=== PATIENT | male | born 1950 | race Caucasian/White ===

== ENCOUNTER 2018-10-12 14:15 | Inpatient (IN) | payer MEDICARE, OTHER, BC ==
[2018-10-12 16:00] LABS: ADD MAN DIFF? NO
[2018-10-12 16:07] LABS: BASOPHIL # 0.1 10^3/ul (0.0-0.1); BASOPHILS % 0.7 % (0.0-2.0); EOSINOPHILS % 0.1 % (0.0-7.0); LYMPHOCYTES # 1.9 10^3/ul (0.8-2.9); LYMPHOCYTES % 20.7 % (15.0-51.0); MEAN CORPUSCULAR HEMOGLOBIN 30.7 pg (29.0-33.0); MEAN CORPUSCULAR HGB CONC 33.3 g/dl (32.0-37.0); MEAN CORPUSCULAR VOLUME 92.2 fl (82.0-101.0); MEAN PLATELET VOLUME 11.5 fl (7.4-10.4); MONOCYTE # 0.6 10^3/ul (0.3-0.9); NEUTROPHIL # 6.7 10^3/ul (1.6-7.5); NEUTROPHILS % 72.1 % (39.0-77.0); PLATELET COUNT 202 10^3/UL (140-415); RED BLOOD COUNT 4.88 10^6/ul (4.70-6.10); RED CELL DISTRIBUTION WIDTH 12.6 % (11.5-14.5)
[2018-10-12 16:07] LABS: WHITE BLOOD COUNT 9.2 10^3/ul (4.8-10.8)
[2018-10-12 16:33] LABS: ANION GAP 14 (5-13); BLOOD UREA NITROGEN 26 mg/dl (7-20); CALCIUM 9.8 mg/dl (8.4-10.2); CARBON DIOXIDE 26 mmol/L (21-31); CHLORIDE 96 mmol/L (97-110); CREATININE 0.95 mg/dl (0.61-1.24); Estimated GFR > 60 mL/min (>60); GLUCOSE 308 mg/dl (70-220); POTASSIUM 4.5 mmol/L (3.5-5.1); SODIUM 136 mmol/L (135-144)
[2018-10-12] MEDS: ACYCLOVIR IVPB (18:23)
[2018-10-12] MEDS: SOD CHLORIDE 0.9% IVPB (18:23)
[2018-10-12] MEDS: LEVOFLOXACIN 750MG/D5W (PMX) 150 ML IVPB (19:29)
[2018-10-12] MEDS: VANCOMYCIN 1 GM (PMX) 250 ML IVPB (21:06)
[2018-10-12] MEDS ORDERED: ONDANSETRON 4 MG INJ IV (22:00)
[2018-10-12] MEDS ORDERED: VANCOMYCIN IV PER PHARMACY XX (22:00)
[2018-10-12] MEDS ORDERED: ACETAMINOPHEN 500 MG TAB PO (22:00)
[2018-10-12] MEDS: RANITIDINE 150 MG TAB PO (22:00)
[2018-10-12] MEDS ORDERED: GLUCAGON 1 MG INJ IM (22:30)
[2018-10-12] MEDS ORDERED: GLUCOSE GEL 15 GRAM TUBE PO ×2 (22:30)
[2018-10-12] MEDS ORDERED: DEXTROSE 50% 50 ML SYRINGE IV ×2 (22:30)
[2018-10-12] MEDS ORDERED: GLUCOSE GEL 15 GRAM TUBE BUCCAL (22:30)
[2018-10-12] MEDS: GABAPENTIN 100 MG CAP PO (22:51)
[2018-10-12] MEDS ORDERED: HYDROCODONE/APAP (5/325) TAB PO (23:00)
[2018-10-12] MEDS: VANCOMYCIN 500MG/NS (PMX) 100 ML IVPB (23:25)
[2018-10-12] MEDS ORDERED: SOD CHLORIDE 0.9% IVPB (23:30)
[2018-10-12] MEDS ORDERED: VANCOMYCIN 1.5 GM in SOD CHLORIDE 0.9% 250 ML IVPB (23:30)
[2018-10-12] MEDS ORDERED: ACYCLOVIR IVPB (23:30)
[2018-10-13] MEDS: ACCU-CHEK XX ×2 (02:00→20:42)
[2018-10-13] MEDS: PANTOPRAZOLE (EC) 40 MG TAB PO (05:52)
[2018-10-13] MEDS: LEVOFLOXACIN 500 MG TAB PO (05:52)
[2018-10-13] MEDS: ACYCLOVIR IVPB ×2 (06:35→15:17)
[2018-10-13] MEDS: SOD CHLORIDE 0.9% IVPB ×2 (06:35→15:17)
[2018-10-13 07:11] LABS: ADD MAN DIFF? NO
[2018-10-13 07:19] LABS: WHITE BLOOD COUNT 9.4 10^3/ul (4.8-10.8)
[2018-10-13 07:19] LABS: BASOPHILS % 0.3 % (0.0-2.0); EOSINOPHILS % 0.1 % (0.0-7.0); HEMATOCRIT 41.4 % (42.0-52.0); HEMOGLOBIN 13.7 g/dl (14.0-18.0); MEAN CORPUSCULAR HEMOGLOBIN 30.4 pg (29.0-33.0); MEAN CORPUSCULAR HGB CONC 33.1 g/dl (32.0-37.0); MEAN PLATELET VOLUME 11.4 fl (7.4-10.4); MONOCYTES % 10.2 % (0.0-11.0); NEUTROPHIL # 6.4 10^3/ul (1.6-7.5); NEUTROPHILS % 67.7 % (39.0-77.0); PLATELET COUNT 169 10^3/UL (140-415); RED CELL DISTRIBUTION WIDTH 12.4 % (11.5-14.5)
[2018-10-13 07:44] LABS: ALANINE AMINOTRANSFERASE 84 IU/L (13-69); ALBUMIN 4.4 g/dl (3.3-4.9); ALBUMIN/GLOBULIN RATIO 1.69; ALKALINE PHOSPHATASE 43 IU/L (42-121); ANION GAP 15 (5-13); ASPARTATE AMINO TRANSFERASE 51 IU/L (15-46); BILIRUBIN,INDIRECT 0.3 mg/dl (0-1.1); BILIRUBIN,TOTAL 0.3 mg/dl (0.2-1.3); BLOOD UREA NITROGEN 40 mg/dl (7-20); CALCIUM 9.3 mg/dl (8.4-10.2); CARBON DIOXIDE 26 mmol/L (21-31); CHLORIDE 96 mmol/L (97-110); CREATININE 2.02 mg/dl (0.61-1.24); Estimated GFR 33 mL/min (>60); GLUCOSE 195 mg/dl (70-220); POTASSIUM 4.3 mmol/L (3.5-5.1); SODIUM 137 mmol/L (135-144)
[2018-10-13] MEDS: FUROSEMIDE 40 MG TAB PO (08:28)
[2018-10-13] MEDS: GABAPENTIN 100 MG CAP PO ×2 (08:28→20:42)
[2018-10-13] MEDS: RANITIDINE 150 MG TAB PO (08:28)
[2018-10-13] MEDS: MULTIVITAMINS/MINERALS TAB PO (08:29)
[2018-10-13] MEDS: predniSONE 20 MG TAB PO (08:29)
[2018-10-13] MEDS: FOLIC ACID 1 MG TAB PO (08:30)
[2018-10-13] MEDS: HYDROCHLOROTHIAZIDE 25 MG TAB PO (08:30)
[2018-10-13] MEDS: INSULIN ASPART [NOVOLOG] 3 ML PEN SC ×4 (08:34→20:42)
[2018-10-13] MEDS: ASPIRIN (EC) 325 MG TAB PO (12:34)
[2018-10-13] MEDS: VANCOMYCIN 1.25 GM in SOD CHLORIDE 0.9% 250 ML IVPB (12:35)
[2018-10-13 15:22] LABS: ADD UMIC YES; UR ASCORBIC ACID NEGATIVE (NEGATIVE); UR BILIRUBIN (Dip) NEGATIVE (NEGATIVE); UR BLOOD (Dip) 1+ mg/dL (NEGATIVE); UR CLARITY SLIGHTLY CLOUDY (CLEAR); UR COLOR YELLOW (YELLOW); UR GLUCOSE (Dip) NEGATIVE (NEGATIVE); UR KETONES (Dip) NEGATIVE (NEGATIVE); UR LEUKOCYTE ESTERASE (Dip) 3+ Leu/ul (NEGATIVE); UR NITRITE (Dip) NEGATIVE (NEGATIVE); UR RBC 4 /HPF (0-5); UR SPECIFIC GRAVITY (Dip) 1.008 (1.003-1.030); UR SQUAMOUS EPITHELIAL CELL FEW /HPF (FEW); UR TOTAL PROTEIN (Dip) 2+ mg/dl (NEGATIVE); UR UROBILINOGEN (Dip) NEGATIVE (NEGATIVE); UR WBC 58 /HPF (0-5)
[2018-10-13] MEDS: ATORVASTATIN 80 MG TAB PO (20:42)
[2018-10-14] MEDS: SOD CHLORIDE 0.9% IVPB (05:53)
[2018-10-14] MEDS: ACYCLOVIR IVPB (05:53)
[2018-10-14] MEDS: PANTOPRAZOLE (EC) 40 MG TAB PO (05:54)
[2018-10-14 07:30] LABS: ADD UMIC YES; UR ASCORBIC ACID NEGATIVE (NEGATIVE); UR BACTERIA FEW /HPF (NONE SEEN); UR BILIRUBIN (Dip) NEGATIVE (NEGATIVE); UR BLOOD (Dip) 1+ mg/dL (NEGATIVE); UR CLARITY SLIGHTLY CLOUDY (CLEAR); UR COLOR STRAW (YELLOW); UR GLUCOSE (Dip) NEGATIVE (NEGATIVE); UR KETONES (Dip) NEGATIVE (NEGATIVE); UR LEUKOCYTE ESTERASE (Dip) 3+ Leu/ul (NEGATIVE); UR NITRITE (Dip) NEGATIVE (NEGATIVE); UR RBC 4 /HPF (0-5); UR SPECIFIC GRAVITY (Dip) 1.006 (1.003-1.030); UR TOTAL PROTEIN (Dip) 1+ mg/dl (NEGATIVE); UR UROBILINOGEN (Dip) NEGATIVE (NEGATIVE); UR WBC 47 /HPF (0-5)
[2018-10-14 07:35] LABS: ADD MAN DIFF? NO
[2018-10-14 07:46] LABS: WHITE BLOOD COUNT 9.3 10^3/ul (4.8-10.8)
[2018-10-14 07:46] LABS: BASOPHILS % 0.3 % (0.0-2.0); EOSINOPHILS % 0.1 % (0.0-7.0); HEMATOCRIT 40.6 % (42.0-52.0); HEMOGLOBIN 13.8 g/dl (14.0-18.0); LYMPHOCYTES # 1.9 10^3/ul (0.8-2.9); LYMPHOCYTES % 20.7 % (15.0-51.0); MEAN CORPUSCULAR VOLUME 91.2 fl (82.0-101.0); MEAN PLATELET VOLUME 11.7 fl (7.4-10.4); MONOCYTE # 0.8 10^3/ul (0.3-0.9); MONOCYTES % 8.6 % (0.0-11.0); NEUTROPHIL # 6.5 10^3/ul (1.6-7.5); NEUTROPHILS % 69.8 % (39.0-77.0); PLATELET COUNT 164 10^3/UL (140-415); RED BLOOD COUNT 4.45 10^6/ul (4.70-6.10); RED CELL DISTRIBUTION WIDTH 12.4 % (11.5-14.5)
[2018-10-14] MEDS: RANITIDINE 150 MG TAB PO (08:44)
[2018-10-14] MEDS: MULTIVITAMINS/MINERALS TAB PO (08:44)
[2018-10-14] MEDS: FUROSEMIDE 40 MG TAB PO (08:44)
[2018-10-14] MEDS: GABAPENTIN 100 MG CAP PO ×2 (08:45→21:36)
[2018-10-14] MEDS: predniSONE 20 MG TAB PO (08:45)
[2018-10-14] MEDS: HYDROCHLOROTHIAZIDE 25 MG TAB PO (08:45)
[2018-10-14] MEDS: FOLIC ACID 1 MG TAB PO (08:45)
[2018-10-14] MEDS: ASPIRIN (EC) 325 MG TAB PO (08:45)
[2018-10-14 09:01] LABS: ALANINE AMINOTRANSFERASE 56 IU/L (13-69); ALBUMIN 4.1 g/dl (3.3-4.9); ALBUMIN/GLOBULIN RATIO 1.51; ALKALINE PHOSPHATASE 49 IU/L (42-121); ANION GAP 19 (5-13); ASPARTATE AMINO TRANSFERASE 33 IU/L (15-46); BILIRUBIN,INDIRECT 0.2 mg/dl (0-1.1); BILIRUBIN,TOTAL 0.2 mg/dl (0.2-1.3); BLOOD UREA NITROGEN 65 mg/dl (7-20); CALCIUM 9.3 mg/dl (8.4-10.2); CARBON DIOXIDE 22 mmol/L (21-31); CHLORIDE 99 mmol/L (97-110); CREATINE KINASE 35 IU/L (23-200); CREATININE 5.29 mg/dl (0.61-1.24); Estimated GFR 11 mL/min (>60); GLUCOSE 202 mg/dl (70-220); POTASSIUM 4.2 mmol/L (3.5-5.1); SODIUM 140 mmol/L (135-144); TOTAL PROTEIN 6.8 g/dl (6.1-8.1)
[2018-10-14 09:13] LABS: CK INDEX 1.9; CK-MB 0.67 ng/ml (0.0-2.4); TROPONIN-I 0.019 ng/ml (0.000-0.120)
[2018-10-14] MEDS: INSULIN ASPART [NOVOLOG] 3 ML PEN SC ×4 (10:20→21:45)
[2018-10-14] MEDS ORDERED: VANCOMYCIN 750 MG in SOD CHLORIDE 0.9% 150 ML IVPB (13:00)
[2018-10-14] MEDS: SOD CHLORIDE 0.9% 1,000 ML IV (13:11)
[2018-10-14 13:46] LABS: MAGNESIUM 1.9 mg/dl (1.7-2.5)
[2018-10-14 13:46] LABS: PHOSPHORUS 6.2 mg/dl (2.5-4.9)
[2018-10-14 14:43] LABS: SODIUM,URINE RANDOM 92 mmol/L (30-90)
[2018-10-14 14:47] LABS: CREATININE,URINE RANDOM 37.14 mg/dl (20-370); PROTEIN/CREAT RATIO 0.48 RATIO
[2018-10-14 19:11] LABS: POTASSIUM 4.5 mmol/L (3.5-5.1)
[2018-10-14] MEDS: ATORVASTATIN 80 MG TAB PO (21:36)
[2018-10-15] MEDS: SOD CHLORIDE 0.9% 1,000 ML IV ×2 (01:13→17:51)
[2018-10-15] MEDS: ACCU-CHEK XX (02:02)
[2018-10-15 05:20] LABS: ADD MAN DIFF? NO
[2018-10-15 05:23] LABS: WHITE BLOOD COUNT 7.7 10^3/ul (4.8-10.8)
[2018-10-15 05:23] LABS: BASOPHILS % 0.4 % (0.0-2.0); EOSINOPHILS % 0.3 % (0.0-7.0); HEMATOCRIT 37.4 % (42.0-52.0); HEMOGLOBIN 12.7 g/dl (14.0-18.0); LYMPHOCYTES # 1.8 10^3/ul (0.8-2.9); LYMPHOCYTES % 22.8 % (15.0-51.0); MEAN CORPUSCULAR HEMOGLOBIN 30.6 pg (29.0-33.0); MEAN CORPUSCULAR VOLUME 90.1 fl (82.0-101.0); MEAN PLATELET VOLUME 11.6 fl (7.4-10.4); MONOCYTE # 0.6 10^3/ul (0.3-0.9); MONOCYTES % 7.3 % (0.0-11.0); NEUTROPHIL # 5.3 10^3/ul (1.6-7.5); NEUTROPHILS % 68.3 % (39.0-77.0); PLATELET COUNT 163 10^3/UL (140-415); RED BLOOD COUNT 4.15 10^6/ul (4.70-6.10); RED CELL DISTRIBUTION WIDTH 12.6 % (11.5-14.5)
[2018-10-15 05:45] LABS: ANION GAP 15 (5-13); BLOOD UREA NITROGEN 80 mg/dl (7-20); CALCIUM 9.1 mg/dl (8.4-10.2); CARBON DIOXIDE 24 mmol/L (21-31); CHLORIDE 101 mmol/L (97-110); CREATININE 5.27 mg/dl (0.61-1.24); Estimated GFR 11 mL/min (>60); GLUCOSE 194 mg/dl (70-220); PHOSPHORUS 7.6 mg/dl (2.5-4.9); SODIUM 140 mmol/L (135-144)
[2018-10-15 05:49] LABS: VANCOMYCIN,RANDOM 18.4 ug/ml
[2018-10-15] MEDS: ACYCLOVIR IVPB (06:22)
[2018-10-15] MEDS: PANTOPRAZOLE (EC) 40 MG TAB PO (06:22)
[2018-10-15] MEDS: SOD CHLORIDE 0.9% IVPB (06:22)
[2018-10-15] MEDS: LEVOFLOXACIN 500 MG TAB PO (06:22)
[2018-10-15] MEDS: GABAPENTIN 100 MG CAP PO ×2 (08:26→20:39)
[2018-10-15] MEDS: POLYETHYLENE GLYCOL 17 GM PACKET PO ×2 (08:26→20:41)
[2018-10-15] MEDS: NA PHOSPHATE/BIPHOS 133 ML ENEMA PR (08:26)
[2018-10-15] MEDS: MULTIVITAMINS/MINERALS TAB PO (08:27)
[2018-10-15] MEDS: predniSONE 20 MG TAB PO (08:27)
[2018-10-15] MEDS: ASPIRIN (EC) 325 MG TAB PO (08:27)
[2018-10-15] MEDS: FOLIC ACID 1 MG TAB PO (08:27)
[2018-10-15] MEDS: RANITIDINE 150 MG TAB PO (08:27)
[2018-10-15] MEDS: DOCUSATE SODIUM 100 MG CAP PO ×2 (08:27→20:39)
[2018-10-15] MEDS: INSULIN ASPART [NOVOLOG] 3 ML PEN SC ×4 (09:00→20:51)
[2018-10-15] MEDS: ATORVASTATIN 80 MG TAB PO (20:39)
[2018-10-15] MEDS: AMLODIPINE 5 MG TAB PO (22:48)
[2018-10-16] MEDS: CLONIDINE 0.1 MG/24 HR PATCH TRANSDERM (01:03)
[2018-10-16] MEDS: ACCU-CHEK XX (02:58)
[2018-10-16] MEDS: ACYCLOVIR IVPB (06:24)
[2018-10-16] MEDS: SOD CHLORIDE 0.9% IVPB (06:24)
[2018-10-16] MEDS: PANTOPRAZOLE (EC) 40 MG TAB PO (06:24)
[2018-10-16 07:34] LABS: ADD MAN DIFF? NO
[2018-10-16 07:45] LABS: BASOPHILS % 0.4 % (0.0-2.0); EOSINOPHILS % 0.4 % (0.0-7.0); HEMATOCRIT 36.9 % (42.0-52.0); HEMOGLOBIN 12.6 g/dl (14.0-18.0); LYMPHOCYTES # 1.8 10^3/ul (0.8-2.9); LYMPHOCYTES % 25.2 % (15.0-51.0); MEAN CORPUSCULAR HEMOGLOBIN 30.7 pg (29.0-33.0); MEAN CORPUSCULAR HGB CONC 34.1 g/dl (32.0-37.0); MEAN PLATELET VOLUME 11.8 fl (7.4-10.4); MONOCYTE # 0.6 10^3/ul (0.3-0.9); NEUTROPHIL # 4.7 10^3/ul (1.6-7.5); NEUTROPHILS % 65.2 % (39.0-77.0); PLATELET COUNT 181 10^3/UL (140-415); RED CELL DISTRIBUTION WIDTH 12.5 % (11.5-14.5)
[2018-10-16 07:45] LABS: WHITE BLOOD COUNT 7.3 10^3/ul (4.8-10.8)
[2018-10-16 08:19] LABS: ANION GAP 12 (5-13); BLOOD UREA NITROGEN 71 mg/dl (7-20); CALCIUM 9.3 mg/dl (8.4-10.2); CARBON DIOXIDE 22 mmol/L (21-31); CHLORIDE 107 mmol/L (97-110); CREATININE 3.82 mg/dl (0.61-1.24); Estimated GFR 16 mL/min (>60); GLUCOSE 187 mg/dl (70-220); MAGNESIUM 1.9 mg/dl (1.7-2.5); PHOSPHORUS 5.2 mg/dl (2.5-4.9); POTASSIUM 3.6 mmol/L (3.5-5.1); SODIUM 141 mmol/L (135-144)
[2018-10-16] MEDS: DOCUSATE SODIUM 100 MG CAP PO ×2 (08:57→20:45)
[2018-10-16] MEDS: MULTIVITAMINS/MINERALS TAB PO (08:58)
[2018-10-16] MEDS: GABAPENTIN 100 MG CAP PO ×2 (08:58→20:44)
[2018-10-16] MEDS: predniSONE 20 MG TAB PO (08:58)
[2018-10-16] MEDS: FOLIC ACID 1 MG TAB PO (08:58)
[2018-10-16] MEDS: ASPIRIN (EC) 325 MG TAB PO (08:58)
[2018-10-16] MEDS: POLYETHYLENE GLYCOL 17 GM PACKET PO ×2 (08:59→21:00)
[2018-10-16] MEDS: RANITIDINE 150 MG TAB PO (08:59)
[2018-10-16] MEDS: INSULIN ASPART [NOVOLOG] 3 ML PEN SC ×4 (09:00→20:51)
[2018-10-16] MEDS: SOD CHLORIDE 0.9% 1,000 ML IV (12:28)
[2018-10-16] MEDS: INSULIN GLARGINE [LANTus] (100 UNITS/ML) SYG SC (12:41)
[2018-10-16 13:23] LABS: GLUCOSE 299 mg/dl (70-220)
[2018-10-16 18:37] LABS: GLUCOSE 360 mg/dl (70-220)
[2018-10-16] MEDS: AMLODIPINE 5 MG TAB PO (20:45)
[2018-10-16] MEDS: ATORVASTATIN 80 MG TAB PO (20:45)
[2018-10-16] MEDS: CLONIDINE 0.2 MG/24 HR PATCH TRANSDERM (23:54)
[2018-10-16] MEDS: OLOPATADINE 0.1% 5 ML OPH RIGHT EYE (23:55)
[2018-10-17] MEDS: SOD CHLORIDE 0.9% 1,000 ML IV ×3 (00:49→17:29)
[2018-10-17] MEDS: ACCU-CHEK XX (02:15)
[2018-10-17] MEDS: PANTOPRAZOLE (EC) 40 MG TAB PO (05:49)
[2018-10-17] MEDS: SOD CHLORIDE 0.9% IVPB (05:50)
[2018-10-17] MEDS: ACYCLOVIR IVPB (05:50)
[2018-10-17] MEDS: OLOPATADINE 0.1% 5 ML OPH RIGHT EYE ×2 (05:56→20:36)
[2018-10-17] MEDS: ARTIFICIAL TEARS 15 ML OPH BOTH EYES (05:57)
[2018-10-17 06:18] LABS: ADD MAN DIFF? NO
[2018-10-17 06:24] LABS: BASOPHILS % 0.5 % (0.0-2.0); EOSINOPHILS # 0.1 10^3/ul (0.0-0.5); EOSINOPHILS % 0.8 % (0.0-7.0); HEMATOCRIT 37.5 % (42.0-52.0); HEMOGLOBIN 12.5 g/dl (14.0-18.0); LYMPHOCYTES # 2.2 10^3/ul (0.8-2.9); LYMPHOCYTES % 28.6 % (15.0-51.0); MEAN CORPUSCULAR HGB CONC 33.3 g/dl (32.0-37.0); MEAN CORPUSCULAR VOLUME 90.1 fl (82.0-101.0); MEAN PLATELET VOLUME 11.6 fl (7.4-10.4); MONOCYTE # 0.6 10^3/ul (0.3-0.9); NEUTROPHIL # 4.9 10^3/ul (1.6-7.5); NEUTROPHILS % 62.1 % (39.0-77.0); PLATELET COUNT 198 10^3/UL (140-415); RED BLOOD COUNT 4.16 10^6/ul (4.70-6.10); RED CELL DISTRIBUTION WIDTH 12.4 % (11.5-14.5)
[2018-10-17 06:24] LABS: WHITE BLOOD COUNT 7.8 10^3/ul (4.8-10.8)
[2018-10-17 06:51] LABS: ANION GAP 13 (5-13); BLOOD UREA NITROGEN 56 mg/dl (7-20); CALCIUM 9.6 mg/dl (8.4-10.2); CARBON DIOXIDE 25 mmol/L (21-31); CHLORIDE 105 mmol/L (97-110); CREATININE 2.84 mg/dl (0.61-1.24); Estimated GFR 22 mL/min (>60); GLUCOSE 167 mg/dl (70-220); MAGNESIUM 1.7 mg/dl (1.7-2.5); PHOSPHORUS 4.7 mg/dl (2.5-4.9); POTASSIUM 3.6 mmol/L (3.5-5.1); SODIUM 143 mmol/L (135-144)
[2018-10-17] MEDS: INSULIN GLARGINE [LANTus] (100 UNITS/ML) SYG SC (08:27)
[2018-10-17] MEDS: INSULIN ASPART [NOVOLOG] 3 ML PEN SC ×4 (08:27→20:42)
[2018-10-17] MEDS ORDERED: predniSOLONE (3 MG/ML) CUP PO (09:00)
[2018-10-17] MEDS ORDERED: OLOPATADINE 0.1% 5 ML OPH RIGHT EYE (09:00)
[2018-10-17] MEDS: POLYETHYLENE GLYCOL 17 GM PACKET PO ×2 (09:00→20:35)
[2018-10-17] MEDS: RANITIDINE 150 MG TAB PO (09:51)
[2018-10-17] MEDS: FOLIC ACID 1 MG TAB PO (09:51)
[2018-10-17] MEDS: ASPIRIN (EC) 325 MG TAB PO (09:51)
[2018-10-17] MEDS: DOCUSATE SODIUM 100 MG CAP PO ×2 (09:51→20:33)
[2018-10-17] MEDS: GABAPENTIN 100 MG CAP PO ×2 (09:52→20:34)
[2018-10-17] MEDS: MULTIVITAMINS/MINERALS TAB PO (09:52)
[2018-10-17] MEDS: AMLODIPINE 5 MG TAB PO ×2 (09:53→20:34)
[2018-10-17] MEDS: predniSOLONE (3 MG/ML PO SYG) PO (09:58)
[2018-10-17] MEDS: ATORVASTATIN 80 MG TAB PO (20:34)
[2018-10-18] MEDS: ACCU-CHEK XX (01:17)
[2018-10-18] MEDS: ACYCLOVIR IVPB ×2 (05:33→20:28)
[2018-10-18] MEDS: SOD CHLORIDE 0.9% IVPB ×2 (05:33→20:28)
[2018-10-18] MEDS: PANTOPRAZOLE (EC) 40 MG TAB PO (05:33)
[2018-10-18] MEDS: predniSOLONE (3 MG/ML PO SYG) PO (08:47)
[2018-10-18] MEDS: DOCUSATE SODIUM 100 MG CAP PO ×2 (08:48→20:20)
[2018-10-18] MEDS: GABAPENTIN 100 MG CAP PO ×2 (08:49→20:20)
[2018-10-18] MEDS: AMLODIPINE 5 MG TAB PO ×2 (08:49→20:20)
[2018-10-18] MEDS: ASPIRIN (EC) 325 MG TAB PO (08:49)
[2018-10-18] MEDS: FOLIC ACID 1 MG TAB PO (08:49)
[2018-10-18] MEDS: OLOPATADINE 0.1% 5 ML OPH RIGHT EYE ×2 (08:50→20:21)
[2018-10-18] MEDS: POLYETHYLENE GLYCOL 17 GM PACKET PO ×2 (08:50→20:21)
[2018-10-18] MEDS: RANITIDINE 150 MG TAB PO (08:50)
[2018-10-18] MEDS: MULTIVITAMINS/MINERALS TAB PO (08:50)
[2018-10-18] MEDS: ARTIFICIAL TEARS 15 ML OPH BOTH EYES (08:51)
[2018-10-18] MEDS: INSULIN ASPART [NOVOLOG] 3 ML PEN SC ×4 (08:54→20:28)
[2018-10-18] MEDS: INSULIN GLARGINE [LANTus] (100 UNITS/ML) SYG SC (08:55)
[2018-10-18] MEDS: SOD CHLORIDE 0.9% 1,000 ML IV ×3 (10:09→18:23)
[2018-10-18 14:05] LABS: ALANINE AMINOTRANSFERASE 69 IU/L (13-69); ALBUMIN 4.2 g/dl (3.3-4.9); ALBUMIN/GLOBULIN RATIO 1.44; ALKALINE PHOSPHATASE 58 IU/L (42-121); ANION GAP 13 (5-13); ASPARTATE AMINO TRANSFERASE 56 IU/L (15-46); BILIRUBIN,INDIRECT 0.1 mg/dl (0-1.1); BILIRUBIN,TOTAL 0.1 mg/dl (0.2-1.3); BLOOD UREA NITROGEN 40 mg/dl (7-20); CALCIUM 9.6 mg/dl (8.4-10.2); CARBON DIOXIDE 23 mmol/L (21-31); CHLORIDE 106 mmol/L (97-110); CREATININE 1.83 mg/dl (0.61-1.24); Estimated GFR 37 mL/min (>60); GLUCOSE 205 mg/dl (70-220); SODIUM 142 mmol/L (135-144); TOTAL PROTEIN 7.1 g/dl (6.1-8.1)
[2018-10-18] MEDS: VARICELLA VACCINE LIVE/PF 1,350 UNIT/0.5 ML ML SC* (18:06)
[2018-10-18] MEDS: ATORVASTATIN 80 MG TAB PO (20:19)
[2018-10-18] MEDS: TERAZOSIN 1 MG CAP PO (21:45)
[2018-10-19] MEDS: ACCU-CHEK XX (01:01)
[2018-10-19] MEDS: SOD CHLORIDE 0.9% 1,000 ML IV (02:15)
[2018-10-19] MEDS: PANTOPRAZOLE (EC) 40 MG TAB PO (05:24)
[2018-10-19 07:39] LABS: ADD MAN DIFF? NO
[2018-10-19 07:44] LABS: WHITE BLOOD COUNT 8.3 10^3/ul (4.8-10.8)
[2018-10-19 07:44] LABS: BASOPHIL # 0.1 10^3/ul (0.0-0.1); BASOPHILS % 0.7 % (0.0-2.0); EOSINOPHILS # 0.1 10^3/ul (0.0-0.5); HEMATOCRIT 37.6 % (42.0-52.0); HEMOGLOBIN 12.5 g/dl (14.0-18.0); LYMPHOCYTES # 2.6 10^3/ul (0.8-2.9); LYMPHOCYTES % 31.1 % (15.0-51.0); MEAN CORPUSCULAR HEMOGLOBIN 30.5 pg (29.0-33.0); MEAN CORPUSCULAR HGB CONC 33.2 g/dl (32.0-37.0); MEAN CORPUSCULAR VOLUME 91.7 fl (82.0-101.0); MEAN PLATELET VOLUME 11.5 fl (7.4-10.4); MONOCYTE # 0.5 10^3/ul (0.3-0.9); MONOCYTES % 5.4 % (0.0-11.0); NEUTROPHIL # 5.1 10^3/ul (1.6-7.5); NEUTROPHILS % 60.8 % (39.0-77.0); PLATELET COUNT 182 10^3/UL (140-415); RED CELL DISTRIBUTION WIDTH 12.5 % (11.5-14.5)
[2018-10-19] MEDS: INSULIN ASPART [NOVOLOG] 3 ML PEN SC ×4 (08:00→21:25)
[2018-10-19 08:01] LABS: ALANINE AMINOTRANSFERASE 65 IU/L (13-69); ALBUMIN 3.6 g/dl (3.3-4.9); ALBUMIN/GLOBULIN RATIO 1.16; ALKALINE PHOSPHATASE 58 IU/L (42-121); ANION GAP 9 (5-13); ASPARTATE AMINO TRANSFERASE 45 IU/L (15-46); BILIRUBIN,INDIRECT 0.2 mg/dl (0-1.1); BILIRUBIN,TOTAL 0.2 mg/dl (0.2-1.3); BLOOD UREA NITROGEN 33 mg/dl (7-20); CALCIUM 8.8 mg/dl (8.4-10.2); CARBON DIOXIDE 23 mmol/L (21-31); CHLORIDE 111 mmol/L (97-110); CREATININE 1.54 mg/dl (0.61-1.24); Estimated GFR 45 mL/min (>60); GLUCOSE 140 mg/dl (70-220); POTASSIUM 3.3 mmol/L (3.5-5.1); SODIUM 143 mmol/L (135-144); TOTAL PROTEIN 6.7 g/dl (6.1-8.1)
[2018-10-19] MEDS: POLYETHYLENE GLYCOL 17 GM PACKET PO ×2 (08:36→21:00)
[2018-10-19] MEDS: DOCUSATE SODIUM 100 MG CAP PO ×2 (08:37→21:00)
[2018-10-19] MEDS: RANITIDINE 150 MG TAB PO (08:37)
[2018-10-19] MEDS: MULTIVITAMINS/MINERALS TAB PO (08:37)
[2018-10-19] MEDS: FOLIC ACID 1 MG TAB PO (08:37)
[2018-10-19] MEDS: predniSOLONE (3 MG/ML PO SYG) PO (08:38)
[2018-10-19] MEDS: AMLODIPINE 5 MG TAB PO ×2 (08:38→21:26)
[2018-10-19] MEDS: ASPIRIN (EC) 325 MG TAB PO (08:38)
[2018-10-19] MEDS: GABAPENTIN 100 MG CAP PO ×2 (08:38→21:26)
[2018-10-19] MEDS: OLOPATADINE 0.1% 5 ML OPH RIGHT EYE ×2 (08:39→21:23)
[2018-10-19] MEDS: ARTIFICIAL TEARS 15 ML OPH BOTH EYES (08:39)
[2018-10-19] MEDS: INSULIN GLARGINE [LANTus] (100 UNITS/ML) SYG SC (08:46)
[2018-10-19] MEDS: SOD CHLORIDE 0.9% IVPB ×2 (09:57→21:24)
[2018-10-19] MEDS: ACYCLOVIR IVPB ×2 (09:57→21:24)
[2018-10-19] MEDS: POTASSIUM CHLORIDE (SR) 10 MEQ TAB PO ×2 (09:57→21:25)
[2018-10-19] MEDS: TERAZOSIN 1 MG CAP PO (21:26)
[2018-10-19] MEDS: ATORVASTATIN 80 MG TAB PO (21:26)
[2018-10-20] MEDS: ACCU-CHEK XX (02:38)
[2018-10-20] MEDS: PANTOPRAZOLE (EC) 40 MG TAB PO (06:12)
[2018-10-20] MEDS: INSULIN ASPART [NOVOLOG] 3 ML PEN SC (08:00)
[2018-10-20] MEDS: INSULIN GLARGINE [LANTus] (100 UNITS/ML) SYG SC (08:18)
[2018-10-20] MEDS: MULTIVITAMINS/MINERALS TAB PO (08:45)
[2018-10-20] MEDS: ACYCLOVIR 800 MG TAB PO (08:45)
[2018-10-20] MEDS: ASPIRIN (EC) 325 MG TAB PO (08:45)
[2018-10-20] MEDS: DOCUSATE SODIUM 100 MG CAP PO (08:45)
[2018-10-20] MEDS: AMLODIPINE 5 MG TAB PO (08:46)
[2018-10-20] MEDS: FOLIC ACID 1 MG TAB PO (08:46)
[2018-10-20] MEDS: RANITIDINE 150 MG TAB PO (08:46)
[2018-10-20] MEDS: ARTIFICIAL TEARS 15 ML OPH BOTH EYES (08:47)
[2018-10-20] MEDS: POLYETHYLENE GLYCOL 17 GM PACKET PO (08:47)
[2018-10-20] MEDS: OLOPATADINE 0.1% 5 ML OPH RIGHT EYE (08:47)
[2018-10-20] MEDS: GABAPENTIN 100 MG CAP PO (08:48)
[2018-10-20] MEDS: predniSOLONE (3 MG/ML PO SYG) PO (08:48)
== END 2018-10-20 12:20 | disposition home or self-care (01) | DRG 73 ==
LOC: E/R 14:15 → 2NE 10-13 22:08
DX: B02.21 Postherpetic geniculate ganglionitis (principal); N17.0 Acute kidney failure with tubular necrosis; B01.9 Varicella without complication; H60.11 Cellulitis of right external ear; E11.65 Type 2 diabetes mellitus with hyperglycemia; G51.0 Bell's palsy; Z95.1 Presence of aortocoronary bypass graft; H91.91 Unspecified hearing loss, right ear; I73.9 Peripheral vascular disease, unspecified; E78.5 Hyperlipidemia, unspecified; N40.0 Benign prostatic hyperplasia without lower urinary tract symptoms; R06.83 Snoring
CPT/HCPCS: 36415; 70450; 76775; 80048; 80053; 80202; 81001; 81003; 82550; 82553; 82570; 82947; 82962; 83735; 84100; 84132; 84300; 84484; 85025; 87070; 87086; 90716; 99285-25